=== PATIENT | female | born 1985 | race Caucasian/White ===

== ENCOUNTER → 2019-12-20 | Outpatient (CLI) | payer BC ==
[~2019-12-20] MED LIST: MIRA3350 PO; PROAAER10 INH; TRAM50TA2 PO
== END ==
LOC: M LABSMTC 09:59 → EDUNIT# 10:00
PROVIDERS: ATTEND Anesthesiology
DX: Z01.812 Encounter for preprocedural laboratory examination (principal); Z20.828 Contact with and (suspected) exposure to other viral communicable diseases

== ENCOUNTER 2019-12-25 06:20 | Day surgery (SDC) | payer BC ==
[~2019-12-25] VITALS: Ht 157.5 cm; Wt 54.9 kg
[~2019-12-25 06:20] MED LIST changes: -MIRA3350 PO; -TRAM50TA2 PO
[2019-12-25] MEDS ORDERED: LR 1,000 ML IV ONE (06:30)
[2019-12-25] MEDS ORDERED: BUPIVACAINE HCL 0.25% 30ML VIAL As Ordered ONE (07:14)
[2019-12-25] MEDS ORDERED: dexameTHASONE 4 MG/ML 1ML VIAL (J1100 PER 1MG) As Ordered ONE (07:19)
[2019-12-25] MEDS ORDERED: MIDAZOLAM INJ 2MG/2ML VIAL (J2250 PER 1MG) As Ordered ONE (07:19)
[2019-12-25] MEDS ORDERED: LIDOCAINE 2% 100MG/5ML SDV (FOR ANES.) As Ordered ONE (07:19)
[2019-12-25] MEDS ORDERED: SUGAMMADEX SODIUM 500 MG/5 ML VIAL (BRIDION) As Ordered ONE (07:19)
[2019-12-25] MEDS ORDERED: METOCLOPRAMIDE INJ 10MG/2ML VIAL (J2765 PER 1) As Ordered ONE (07:19)
[2019-12-25] MEDS ORDERED: ONDANSETRON 4MG/2ML VIAL As Ordered ONE (07:19)
[2019-12-25] MEDS ORDERED: ROCURONIUM BROMIDE 50 MG/5 ML VIAL As Ordered ONE (07:19)
[2019-12-25] MEDS ORDERED: KETOROLAC 60MG 2ML VIAL As Ordered ONE (07:19)
[2019-12-25] MEDS ORDERED: propofoL 200 MG/20 ML VIAL As Ordered ONE (07:19)
[2019-12-25] MEDS ORDERED: fentaNYL 100 MCG/2 ML INJECTION (J3010) As Ordered ONE (07:20)
[2019-12-25] MEDS ORDERED: LR 1,000 ML IV SCH (09:15)
[2019-12-25] MEDS ORDERED: ONDANSETRON 4MG/2ML VIAL IV PRN (09:15)
[2019-12-25] MEDS ORDERED: fentaNYL 100 MCG/2 ML INJECTION (J3010) IV PRN (09:15)
[2019-12-25] MEDS ORDERED: HYDROMORPHONE HCL 0.5 MG/ 0.5 ML SYRINGE (J1170 PER 1) IV PRN (09:15)
[2019-12-25] MEDS ORDERED: MIRA3350 PO (09:59)
[2019-12-25] MEDS ORDERED: TRAM50TA2 PO (09:59)
[2019-12-25 10:42] VITALS: BP 106/62
--- NOTE | 2019-12-25 14:17 | RO ---
DATE OF OPERATION: 12/25/2019 STAFF SURGEON: Dr. Tess Frank DYE MACHINE OPERATOR: Dr. Ana Choudhury CLINICAL SERVICE: Gynecology INDICATION FOR OPERATION: Kelly is a 34-year-old G5, P0-3-2-2 who presented with worsening symptoms related to her endometriosis. She had endometriosis previously diagnosed with laparoscopy done by Dr. Chatterjee in 2013 and 2019. She had small endometrial implants in the pelvis when I reviewed the operative notes, and she had an appendectomy performed related to that as well as a pelvic neurectomy. She noted that she had increasing flares with painful periods, bloating, and she strongly desired a repeat laparoscopy. She had been placed on hormonal regulation for her endometriosis previously, but she noted that she does not tolerate it well. PREOPERATIVE DIAGNOSIS: Pelvic pain, endometriosis. POSTOPERATIVE DIAGNOSIS: Pelvic pain, endometriosis. MATERIAL FORWARDED TO THE LABORATORY: Pap smear. DESCRIPTION OF FINDINGS: Examination of the cervix using speculum prior to the procedure to perform the Pap smear revealed a normal multiparous os. No obvious lesions. Laparoscopic findings included normal-appearing uterus, ovaries, liver edge. Her gallbladder and appendix were surgically absent, and her fallopian tubes were surgically interrupted previously. I noted no obvious endometriosis lesions within the pelvic, not in the anterior cul-de-sac or the posterior cul-de-sac, not in the ovarian fossae. It was all very normal and healthy appearing tissue. INFECTION CLASSIFICATION: 2. ESTIMATED BLOOD LOSS: 5 mL. URINE OUTPUT: By straight catheter 30 mL. INTRAVENOUS FLUIDS: 1400 mL of lactated Ringer's. OPERATION PERFORMED: Diagnostic/operative laparoscopy with lysis of adhesions. DESCRIPTION OF OPERATION: After obtaining informed consent, the patient was taken to the operating room. General endotracheal anesthesia was established. She was placed on low lithotomy position. Pap smear was obtained prior to the vaginal prep. The patient was then prepped and draped in the usual sterile fashion. She was placed in Trendelenburg position. Straight catheterization was performed with 30 mL of urine obtained. The bivalve speculum was placed again in the vagina with visualization of the cervix obtained. Anterior lip of the cervix was grasped with a single-tooth tenaculum. A sound was used. Easily went through the cervix, sounding the uterus to 7 cm, and then EnhanCVlka uterine manipulator was placed through the cervix into the uterus. Tenaculum was removed with hemostasis observed, and the bivalve speculum was removed. Patient was taken out of Trendelenburg position. A 5 mm incision was made in the infraumbilical fold beneath subcutaneous tissue. Lower abdominal wall was manually grabbed and lifted up. The site was anesthetized with 0.25% Marcaine. Optiview trocar was placed at a 90-degree angle. Laparoscope was advanced through the port, and intra-abdominal placement was confirmed, noting no injury below the point of entry. Continuous flow carbon dioxide began to establish a pneumoperitoneum at 15 mm of mercury pressure. At that point, we did an initial survey, noting normal anterior cul-de-sac. The anterior portion of the uterus appeared normal. Liver edge was normal in appearance. Again, gallbladder was surgically absent. There was a small filmy adhesion from the omentum down to the anterior abdominal wall, just above the area of the right adnexa. I did place another 5 mm port through a 5 mm incision in the left lower quadrant using her prior scar, anesthetizing with 0.25% Marcaine. The trocar was placed under direct visualization. I then completed the pelvic survey, lifting up the uterus using, the uterine manipulator, looking in the ovarian fossae, posterior cul-de-sac. The ovaries themselves looked normal. The fallopian were interrupted from prior tubal ligation, but nothing else was abnormal in appearance, other than the filmy adhesion, so at that point I used a scissors to cut the filmy adhesion, and there was very, very tiny bleeding from the anterior abdominal wall where the adhesion fell down from, so I used a blunt grasper with monopolar cautery and just touched that area with complete hemostasis noted. At that point, we removed all instruments, and the ports were removed. The left lower quadrant port was removed under direct visualization and observed to be hemostatic. Pneumoperitoneum was released prior to the removal of the umbilical port. The incisions were then reapproximated with 4-0 Monocryl and Dermabond. I anesthetized again with 0.25% Marcaine at the sites for long-acting pain control. All instruments were removed from the vagina. Patient was returned to supine position. All counts were correct times two. The patient tolerated the procedure well. She was awakened from general anesthesia and was taken to the recovery room in stable condition. DORA
== END 2019-12-25 11:02 | disposition home or self-care (01) ==
LOC: M SDC 06:20 → EDUNIT# 07:30 → M SDC 11:02
PROVIDERS: ATTEND Obstetrics & Gynecology
DX: N80.3 Endometriosis of pelvic peritoneum (principal); K66.0 Peritoneal adhesions (postprocedural) (postinfection); R87.610 Atypical squamous cells of undetermined significance on cytologic smear of cervix (ASC-US); F43.10 Post-traumatic stress disorder, unspecified; G43.909 Migraine, unspecified, not intractable, without status migrainosus; J45.909 Unspecified asthma, uncomplicated; R87.810 Cervical high risk human papillomavirus (HPV) DNA test positive; R23.3 Spontaneous ecchymoses; Z87.442 Personal history of urinary calculi; Z88.1 Allergy status to other antibiotic agents; Z88.5 Allergy status to narcotic agent; Z88.8 Allergy status to other drugs, medicaments and biological substances; Z91.040 Latex allergy status; Z98.51 Tubal ligation status; Z92.3 Personal history of irradiation
CPT/HCPCS: 58660; 87624; G0123; J1100; J1885; J2250; J2405; J2765; J3010

== ENCOUNTER → 2020-07-15 | Outpatient (CLI) | payer BC ==
[~2020-07-15] MED LIST changes: +ISOVUE-370 76% 100ML VIAL As Ordered ONE; +MIRA3350 PO; +TRAM50TA2 PO
--- NOTE | 2020-07-15 09:57 | REP ---
INDICATION: EPIGASTRIC PAIN - WALK IN LAB AFTER. COMPARISON: None. TECHNIQUE: Axial contrast-enhanced images of the abdomen using 100 cc Isovue 370 intravenous contrast material with coronal and sagittal reformations. . This CT examination was performed using the following dose reduction techniques: Automated exposure control, adjustment of mA and/or kv according to the patient's size, and use of iterative reconstruction technique. FINDINGS: Lung bases are clear. Previously placed vascular coils are identified in the medial segment of the right middle lobe. Visualized heart and pericardium are normal. Liver, spleen, pancreas, bilateral adrenal glands and kidneys are normal. Evidence for prior cholecystectomy. Visualized portions of the enteric system are grossly unremarkable and without obstruction or acute inflammatory process. Abdominal aorta is normal. 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 IMPRESSION: No acute abdominopelvic pathology appreciated. <Electronically signed by Shaquille Coyne > 07/15/20 [id number]
[2020-07-15 15:56] LABS: ALBUMIN 4.2 GM/DL (3.2-5.2); ALT/SGPT 17 U/L (12-78); AMYLASE 58 U/L (25-115); BLOOD UREA NITROGEN 10 MG/DL (7-18); C REACTIVE PROTEIN QUANTITATIV 0.73 MG/DL (0.00-0.30); CALCIUM LEVEL 8.9 MG/DL (8.5-10.1); CARBON DIOXIDE LEVEL 26 MEQ/L (21-32); CHLORIDE LEVEL 105 MEQ/L (98-107); GLOMERULAR FILTRATION RATE > 60.0 (>60); GLUCOSE, FASTING 74 MG/DL (70-100); LIPASE 196 U/L (73-393); POTASSIUM SERUM 4.1 MEQ/L (3.5-5.1); SODIUM LEVEL 140 MEQ/L (136-145); TOTAL PROTEIN 7.5 GM/DL (6.4-8.2)
== END ==
LOC: M RAD 08:44
PROVIDERS: ATTEND Physician Assistant
DX: R10.13 Epigastric pain (principal); K21.9 Gastro-esophageal reflux disease without esophagitis

== ENCOUNTER → 2020-08-24 | Outpatient (CLI) | payer BC ==
[~2020-08-24] MED LIST changes: -ISOVUE-370 76% 100ML VIAL As Ordered ONE
== END ==
LOC: M SMT 11:29
PROVIDERS: ATTEND Obstetrics & Gynecology
DX: R10.30 Lower abdominal pain, unspecified (principal)

== ENCOUNTER → 2020-08-27 | Outpatient (CLI) | payer BC ==
--- NOTE | 2020-08-27 15:11 | REP ---
INDICATION: R10.30 R GROIN PAIN. COMPARISON: None. TECHNIQUE: Right lower quadrant sonography. FINDINGS: Right lower quadrant scanning shows normal peristalsing bowel. The appendix is not identified. Some intraluminal bowel fluid is seen. No free fluid is noted. There is no evidence of mass or adenopathy. No evidence of hernia. IMPRESSION: Appendix not visualized. No abnormality noted. <Electronically signed by Ori Storey > 08/27/20 [id number]
== END ==
LOC: M WHC 14:20
PROVIDERS: ATTEND Obstetrics & Gynecology
DX: R10.30 Lower abdominal pain, unspecified (principal)

== ENCOUNTER → 2020-12-08 | Outpatient (REF) | LOC: M EMP 10:05 | PROVIDERS: ATTEND Family Medicine | DX: Z11.52 Encounter for screening for COVID-19 (principal) ==

== ENCOUNTER → 2020-12-14 | Outpatient (REF) | LOC: M EMP 08:54 | PROVIDERS: ATTEND Family Medicine | DX: Z11.52 Encounter for screening for COVID-19 (principal) ==

== ENCOUNTER → 2021-01-11 | Outpatient (CLI) | payer BC ==
[2021-01-11 09:09] LABS: HEMATOCRIT 42.1 % (36.0-47.0); HEMOGLOBIN 14.1 g/dl (12.0-15.5); MEAN CORPUSCULAR HEMOGLOBIN 30.5 pg (27.0-33.0); MEAN CORPUSCULAR HGB CONC 33.5 g/dl (32.0-36.5); MEAN CORPUSCULAR VOLUME 91.1 fl (80.0-96.0); PLATELET COUNT, AUTOMATED 246 10^3/uL (150-450); RED BLOOD COUNT 4.62 10^6/uL (4.00-5.40); WHITE BLOOD COUNT 4.7 10^3/uL (4.0-10.0)
[2021-01-11 09:52] LABS: ALBUMIN 4.3 GM/DL (3.2-5.2); ALT/SGPT 21 U/L (12-78); BILIRUBIN,TOTAL 1.1 MG/DL (0.2-1.0); BLOOD UREA NITROGEN 11 MG/DL (7-18); CALCIUM LEVEL 9.2 MG/DL (8.5-10.1); CARBON DIOXIDE LEVEL 28 MEQ/L (21-32); CHLORIDE LEVEL 105 MEQ/L (98-107); CHOLESTEROL LEVEL 137 MG/DL (<200); CHOLESTEROL RISK RATIO 1.802 (<5); CREATININE FOR GFR 0.56 MG/DL (0.55-1.30); FREE T4 1.03 NG/DL (0.76-1.46); GLOMERULAR FILTRATION RATE > 60.0 (>60); GLUCOSE, FASTING 91 MG/DL (70-100); HDL CHOLESTEROL 76 MG/DL (>40); LDL CHOLESTEROL 46 MG/DL (<100); NON-HDL-C 61 MG/DL; POTASSIUM SERUM 4.1 MEQ/L (3.5-5.1); SODIUM LEVEL 138 MEQ/L (136-145); TOTAL PROTEIN 7.5 GM/DL (6.4-8.2); TRIGLYCERIDES LEVEL 74 MG/DL (<150)
== END ==
LOC: M LAB 07:44
PROVIDERS: ATTEND Internal Medicine Cardiovascular Disease
DX: R00.2 Palpitations (principal)

== ENCOUNTER → 2021-01-20 | Outpatient (REF) | payer BC ==
[2021-01-20 12:19] LABS: APPEARANCE, URINE TURBID (CLEAR); BACTERIA, URINE AUTO NEGATIVE (NEGATIVE); BILIRUBIN, URINE AUTO NEGATIVE (NEGATIVE); BLOOD, URINE BLOOD 3+ (NEGATIVE); COLOR, URINE AMBER (YELLOW); GLUCOSE, URINE (UA) AUTO NEGATIVE (NEGATIVE); KETONE, URINE AUTO TRACE mg/dL (NEGATIVE); LEUKOCYTE ESTERASE, URINE AUTO 3+ (NEGATIVE); MUCUS, URINE SMALL (NEGATIVE); NITRITE, URINE AUTO NEGATIVE (NEGATIVE); PROTEIN, URINE AUTO 2+ mg/dL (NEGATIVE); RBC, URINE AUTO TNTC /HPF (0-3); SPECIFIC GRAVITY URINE AUTO 1.017 (1.002-1.035); SQUAMOUS EPITHELIAL CELL UR AU 7 /HPF (0-6); UROBILINOGEN, URINE AUTO 0.2 mg/dL (0.0-2.0); WBC, URINE AUTO TNTC /HPF (0-3)
== END ==
LOC: M LAB REF 11:44
PROVIDERS: ATTEND Physician Assistant
DX: R30.0 Dysuria (principal)

== ENCOUNTER → 2021-03-25 | Outpatient (CLI) | payer BC | LOC: M RAD 08:43 | PROVIDERS: ATTEND Nurse Practitioner Family | DX: R10.13 Epigastric pain (principal); K31.84 Gastroparesis ==